=== PATIENT | female | born 1985 | race African-American/Black ===

== ENCOUNTER 2023-08-15 05:37 | Emergency (ER) | payer MEDICAID ==
[~2023-08-15] VITALS: Ht 170.2 cm; Wt 62.0 kg
[2023-08-15 06:20] VITALS: O2SAT 100
[2023-08-15 07:42] LABS: HEMATOCRIT. 27.9 % (36.0-48.0); HEMOGLOBIN. 8.4 g/dL (12.0-16.0); MEAN CORPUSCULAR HEMOGLOBIN 21.7 pg (28.0-32.0); MEAN CORPUSCULAR HGB CONC 30.2 g/dL (31.0-37.0); MEAN CORPUSCULAR VOLUME 71.8 fL (81.0-99.0); MEAN PLATELET VOLUME 9.4 fl (7.4-10.4); PLATELET 267 x1000/uL (130-400); RED BLOOD CELL COUNT 3.88 mill/uL (4.2-5.4); RED CELL DISTRIBUTION WIDTH 18.8 % (11.6-14.6); WHITE BLOOD COUNT 5.1 x1000/uL (4.5-11.0)
[2023-08-15 07:56] LABS: DIFFERENTIAL COMMENT 1
[2023-08-15 08:05] LABS: ALANINE AMINOTRANSFERASE < 7 IU/L (10-49); ALBUMIN 3.9 g/dL (3.2-4.8); ASPARTATE AMINOTRANSFERASE 12 IU/L (<34); BILIRUBIN TOTAL 0.3 mg/dL (0.1-1.0); CALCIUM 8.5 mg/dL (8.7-10.4); CARBON DIOXIDE 28 mEq/L (21-32); CHLORIDE 104 mEq/L (98-107); CREATININE 0.6 mg/dL (0.6-1.0); GLUCOSE 107 mg/dL (70-105); POTASSIUM 3.3 mEq/L (3.5-5.1); PROTEIN TOTAL 6.9 g/dL (6.0-8.3); SODIUM 136 mEq/L (136-145)
[2023-08-15 08:06] LABS: UREA NITROGEN BLOOD < 5 mg/dL (9-23)
[2023-08-15 08:51] LABS: ANISOCYTOSIS 1+; MICROCYTOSIS 2+; PLATELET ESTIMATE NORMAL
[2023-08-15] MEDS ORDERED: ACETAMINOPHEN 325MG TABLET PO STA (09:28)
[2023-08-15] MEDS ORDERED: SODIUM CHLORIDE 0.9% 1000ML BAG (SEPSIS BOLUS) IV ONE (09:30)
[2023-08-15] MEDS ORDERED: CEFTRIAXONE 1GM PREMIX 50 ML IV ONE (09:30)
[2023-08-15 09:59] LABS: HCG SCREEN NEGATIVE
[2023-08-15] MEDS ORDERED: KETOROLAC 15MG/ML VIAL IV ONE (10:45)
[2023-08-15 10:56] LABS: CLARITY URINE CLEAR (CLEAR); COLOR URINE DARK YELLOW (YELLOW); GLUCOSE URINE NEGATIVE (NEGATIVE); KETONES URINE 1+ (NEGATIVE); LEUKOCYTE ESTERASE URINE NEGATIVE (NEGATIVE); NITRITE URINE NEGATIVE (NEGATIVE); OCCULT BLOOD URINE NEGATIVE (NEGATIVE); PH URINE 5.5 (4.5-8.0); PROTEIN URINE TRACE (NEGATIVE); SPECIFIC GRAVITY URINE 1.028 (1.005-1.030)
[2023-08-15 11:18] LABS: MUCUS URINE 1+ /lpf (< = 2+)
[2023-08-15 11:19] LABS: BACTERIA URINE TRACE; SQUAMOUS EPITHELIAL CELL URINE 1+ /lpf (RARE/1+)
[2023-08-15 11:20] LABS: RBC URINE 0-2 /hpf (0-2)
[2023-08-15] MEDS ORDERED: ACET-2708 MT (12:20)
[2023-08-15 13:20] VITALS: BP 102/59; PULSE 90; RESP 16; TEMP 98
== END 2023-08-15 13:22 | disposition home or self-care (01) ==
LOC: ER 05:37
DX: J06.9 Acute upper respiratory infection, unspecified (principal)
CPT/HCPCS: 80053; 81003; 81025; 84703; 83605; 85025; 87040; 87086; 87804 ×2; 36415; 71045; 96365; 96375; 99284; J0696; J1885; J7030; Z7610 ×5